=== PATIENT | female | born 1975 | race Two or more races ===

== ENCOUNTER 2021-07-30 08:55 | Emergency (ER) | payer MEDICAID ==
[~2021-07-30] VITALS: Ht 157.5 cm; Wt 73.0 kg
[2021-07-30] MEDS ORDERED: IBUPROFEN 600MG TABLET PO STA (09:24)
[2021-07-30] MEDS ORDERED: HYDROCODONE/ACETAMINOPHEN 5/325MG TABLET PO STA (09:24)
[2021-07-30 10:06] VITALS: BP 107/52
== END 2021-07-30 12:05 | disposition home or self-care (01) ==
LOC: ER 09:18
DX: M79.602 Pain in left arm (principal); V43.52XA Car driver injured in collision with other type car in traffic accident, initial encounter; Y93.9 Activity, unspecified; Y92.410 Unspecified street and highway as the place of occurrence of the external cause
CPT/HCPCS: 73060; 81025; 99283